=== PATIENT | female | born 1965 | race Caucasian/White ===

== ENCOUNTER 2018-12-18 09:58 | Outpatient (CLI) | payer OTHER ==
--- NOTE | 2018-12-18 10:23 | CT ---
EXAM: Brain CTWithout contrast: HISTORY: Chronic headaches, vertigo COMPARISON: None FINDINGS: Borderline size sella without evidence for a pituitary or sellar mass. No focal mass or midline shift. No intra or extra-axial hemorrhage. Sinuses and mastoids are clear of acute process. IMPRESSION: No mass or bleed or other significant acute intracranial process. Borderline sized sella.
== END 2018-12-18 09:59 | disposition home or self-care (01) ==
LOC: MADCT 09:58
PROVIDERS: ATTEND Family Medicine
DX: R51 Headache (principal)
CPT/HCPCS: 70450

== ENCOUNTER 2020-10-06 19:21 | Emergency (ER) | payer OTHER ==
[2020-10-06] MEDS ORDERED: Sodium Chloride Irrig Solution 250 ML ONE (20:08)
== END 2020-10-06 19:55 | disposition home or self-care (01) ==
LOC: MADERS 19:21
DX: S01.01XA Laceration without foreign body of scalp, initial encounter (principal); Y00.XXXA Assault by blunt object, initial encounter
CPT/HCPCS: 12001

== ENCOUNTER 2021-02-13 03:05 | Emergency (ER) | payer OTHER | END 2021-02-13 03:46 | disposition left against medical advice (07) | LOC: MADERS 03:05 | DX: R51.9 Headache, unspecified (principal); G89.29 Other chronic pain | CPT/HCPCS: 99283 ==

== ENCOUNTER 2021-03-16 19:13 | Emergency (ER) | payer OTHER ==
[2021-03-16] MEDS ORDERED: Azithromycin 250 MG TAB ONE (19:44)
[2021-03-17 17:35] LABS: SARS-CoV-2 PCR by NAA Not Detected (NotDetected)
== END 2021-03-16 19:52 | disposition home or self-care (01) ==
LOC: MADERS 19:13
DX: J20.9 Acute bronchitis, unspecified (principal); I10 Essential (primary) hypertension; Z20.822 Contact with and (suspected) exposure to COVID-19; Z79.899 Other long term (current) drug therapy
CPT/HCPCS: 99284; U0003; U0005

== ENCOUNTER 2023-05-11 09:38 | Emergency (ER) | payer OTHER ==
[2023-05-11] MEDS ORDERED: Acetaminophen 500 MG TAB ONE (09:55)
== END 2023-05-11 10:30 | disposition home or self-care (01) ==
LOC: MADERS 09:38
DX: U07.1 COVID-19 (principal); J06.9 Acute upper respiratory infection, unspecified; I10 Essential (primary) hypertension; Z79.899 Other long term (current) drug therapy
CPT/HCPCS: 87635; 87804; 99283

== ENCOUNTER 2024-04-19 19:55 | Emergency (ER) | payer OTHER | END 2024-04-19 21:04 | disposition home or self-care (01) | LOC: MADERS 19:55 | DX: B34.9 Viral infection, unspecified (principal); I10 Essential (primary) hypertension; Z79.899 Other long term (current) drug therapy | CPT/HCPCS: 87081; 87428; 87430; 99283 ==